=== PATIENT | male | born 1960 | race Two or more races ===

== ENCOUNTER 2020-01-07 10:29 | Emergency (ER) | payer SELFPAY ==
[2020-01-07] MEDS ORDERED: Sodium Chloride 0.9% 1,000 ML IV ONE (10:59)
--- NOTE | 2020-01-07 11:05 | EDM.PDOC ---
ED HPI GENERAL MEDICAL PROBLEM - General Chief Complaint: Respiratory Problem Stated Complaint: FEELING SICK Time Seen by Provider: 01/07/20 11:03 Source of Information: Reports: Patient History Limitations: Reports: No Limitations - History of Present Illness INITIAL COMMENTS - FREE TEXT/NARRATIVE: HISTORY AND PHYSICAL: History of present illness: Patient is a 59-year-old male who presents to the emergency room with complaints of "flulike symptoms". He states he has not felt well over the past 3 to 5 days and has not improved with rest/time. He states he has a dry nonproductive cough, occasional shortness of breath, fatigue and body aches. Patient denies any fever, chills, headache, change in vision, syncope or near syncope. Denies any chest pain, back pain, abdominal pain, nausea, vomiting, diarrhea, constipation or dysuria. Has not noted any blood in urine or stool. Patient has been eating and drinking appropriately. Translation Services was used: Iraqi Speaking Review of systems: As per history of present illness and below otherwise all systems reviewed and negative. Past medical history: As per history of present illness and as reviewed below otherwise noncontributory. Surgical history: As per history of present illness and as reviewed below otherwise noncontributory. Social history: See social history for further information Family history: As per history of present illness and as reviewed below otherwise noncontributory. Physical exam: General: Well developed and well nourished. Alert and orientated x 3. Nontoxic in appearance and in no acute distress. Vital signs are stable and have been reviewed by me. Nursing notes were reviewed. HEENT: Atraumatic, normocephalic, pupils equal and reactive bilaterally, negative for conjunctival pallor or scleral icterus, mucous membranes moist, TMs normal bilaterally, throat clear, neck supple, nontender, trachea midline. No drooling or trismus noted. No meningeal signs. No hot potato voice noted. Lungs: Clear to auscultation, breath sounds equal bilaterally, chest nontender. Normal work of breathing, no accessory muscles used. Heart: S1S2, regular rate and rhythm without overt murmur Abdomen: Soft, nondistended, nontender. Negative for masses or hepatosplenomegaly. Negative for costovertebral tenderness. Skin: Intact, warm, dry. No lesions or rashes noted. Hematologic: No petechiae or purpra. Mucosa appropriate color and normal nail bed color and refill. Extremities: Atraumatic, moves all extremities per self without difficulty or deficits, negative for cords or calf pain. Neurovascular unremarkable. Neuro: Awake, alert, oriented. Cranial nerves II through XII unremarkable. Cerebellum unremarkable. Motor and sensory unremarkable throughout. Exam nonfocal. Psychiatric: Mood and affect are appropriate. Normal thought process. Answering questions appropriately. Notes: Patient is vague with his symptoms and his dictation of what brings him to the ED today changes slightly when asked the same question. Initially he states he thinks he has the "flu" but since his symptoms are vague and changing during the interview, I will do a cardiac work up with basic labs as well to avoid missing anything. Lab work is unremarkable with the exception of positive COVID-19. His vital signs remained stable. I have talked with the patient about today's findings, in addition to providing specific details for plan of care. Reassessment at the time of disposition demonstrates that the patient is in no acute distress. The patient is stable for discharge, counseling was provided and we discussed in great detail signs and symptoms that would prompt them to return to the Emergency Department. Medication, follow up and supportive care measures were reviewed and discussed. Voices understanding and is agreeable to plan of care. Denies any further questions or concerns at this time. Diagnostics: CBC, CMP, Troponin, EKG, CXR, COVID Therapeutics: IV fluids Prescription: None Impression: COVID-19 Plan: 1. Your COVID-19 screening is positive. That means you do have the coronavirus and you are considered contagious. Your vital signs and oxygen saturation are w ell enough that you were able to monitor your symptoms at home. Continue to monitor for trouble breathing, new confusion or inability to arouse, bluish lips or face or any of the other symptoms we discussed -if this occurs please return to the emergency room. 2. Please self quarantine over the next 10 days. Inform any persons that you have been in contact with since you started becoming symptomatic that you have tested positive; they should be made aware and take the appropriate steps as needed. 3. You can take NyQuil during the evening to help get a restful night sleep. May alternate Tylenol and ibuprofen as needed for pain and fever management. 4. The [facility] department will be calling you and following up with you. The [place] COVID 19 Hotline phone number , They are open Thursday - Thursday 7am - 7pm. Follow up with your primary care provider for re-evaluation and re-testing after the 10 day quarantine and discuss when you should be seen. Definitive disposition and diagnosis as appropriate pending reevaluation and review of above. - Related Data Allergies Allergy/AdvReac Type Severity Reaction Status Date / Time No Known Allergies Allergy Verified 01/07/20 10:48 Home Meds: Home Meds . [No Known Home Meds] 01/07/20 [History] Past Medical History - Past Health History Medical/Surgical History: Denies Medical/Surgical History - Infectious Disease History Infectious Disease History: Reports: Chicken Pox, Measles Social & Family History - Family History Family Medical History: No Pertinent Family History - Tobacco Use Tobacco Use Status *Q: Never Tobacco User - Recreational Drug Use Recreational Drug Use: No ED ROS GENERAL - Review of Systems Review Of Systems: Comprehensive ROS is negative, except as noted in HPI. ED EXAM, GENERAL - Physical Exam Exam: See Below (See dictation) Course - Vital Signs Last Recorded V/S: Last Vital Signs Temp 96.2 F L 01/07/20 10:42 Pulse 75 01/07/20 10:42 Resp 18 01/07/20 10:42 BP 151/73 H 01/07/20 10:42 Pulse Ox 94 L 01/07/20 10:42 - Orders/Labs/Meds Orders: Active Orders 24 hr Category Date Time Status Chest 1V Frontal [CR] Stat Exams 01/07/20 10:59 Ordered CORONAVIRUS COVID-19 PCR PHL Stat Lab 01/07/20 11:27 Received Sodium Chloride 0.9% [Normal Saline] 1,000 ml Med 01/07/20 10:59 Active IV STAT Medication Orders Sodium Chloride (Normal Saline) 1,000 mls @ 999 mls/hr IV STAT ONE Stop: 01/07/20 11:59 Last Admin: 01/07/20 11:09 Dose: 999 mls/hr Documented by: DANIEL Labs: Laboratory Tests 01/07/20 01/07/20 01/07/20 Range/Units 11:10 11:10 11:27 WBC 6.24 (4.0-11.0) K/uL RBC 4.31 L (4.50-5.90) M/uL Hgb 13.3 (13.0-17.0) g/dL Hct 39.0 (38.0-50.0) % MCV 90.5 (80.0-98.0) fL MCH 30.9 (27.0-32.0) pg MCHC 34.1 (31.0-37.0) g/dL RDW Std Deviation 42.0 (28.0-62.0) fl RDW Coeff of Renita 13 (11.0-15.0) % Plt Count 179 (150-400) K/uL MPV 9.50 (7.40-12.00) fL Neut % (Auto) 62.5 (48.0-80.0) % Lymph % (Auto) 28.7 (16.0-40.0) % Ross % (Auto) 8.8 (0.0-15.0) % Eos % (Auto) 0.0 (0.0-7.0) % Baso % (Auto) 0.0 (0.0-1.5) % Neut # (Auto) 3.9 (1.4-5.7) K/uL Lymph # (Auto) 1.8 (0.6-2.4) K/uL Ross # (Auto) 0.6 (0.0-0.8) K/uL Eos # (Auto) 0.0 (0.0-0.7) K/uL Baso # (Auto) 0.0 (0.0-0.1) K/uL Nucleated RBC % 0.0 /100WBC Nucleated RBCs # 0 K/uL Sodium 137 (136-148) mmol/L Potassium 3.2 L (3.5-5.1) mmol/L Chloride 104 (98-107) mmol/L Carbon Dioxide 25.1 (21.0-32.0) mmol/L BUN 14 (7.0-18.0) mg/dL Creatinine 0.8 (0.8-1.3) mg/dL Est Cr Clr Drug Dosing 93.81 mL/min Estimated GFR (MDRD) > 60.0 ml/min Glucose 100 (74-106) mg/dL Calcium 8.2 L (8.5-10.1) mg/dL Total Bilirubin 0.3 (0.2-1.0) mg/dL AST 22 (15-37) IU/L ALT 23 (14-63) IU/L Alkaline Phosphatase 83 (46-116) U/L Troponin I 0.054 (0.000-0.056) ng/mL Total Protein 7.2 (6.4-8.2) g/dL Albumin 3.2 L (3.4-5.0) g/dL Globulin 4.0 (2.6-4.0) g/dL Albumin/Globulin Ratio 0.8 L (0.9-1.6) SARS CoV-2 RNA Rapid WILFRIDO POSITIVE H (NEGATIVE) Meds: Medications Generic Name Dose Route Start Last Admin Trade Name Freq PRN Reason Stop Dose Admin Sodium Chloride 1,000 mls @ 999 mls/hr 01/07/20 10:59 01/07/20 11:09 Normal Saline IV 01/07/20 11:59 999 mls/hr STAT ONE Administration Departure - Departure Time of Disposition: 11:46 Disposition: Home, Self-Care 01 Clinical Impression: COVID-19 - Discharge Information Instructions: COVID-19 Referrals: PCP,None [Primary Care Provider] - Forms: ED Department Discharge Additional Instructions: La siguiente informacin se proporciona a los pacientes atendidos en el departamento de emergencias que estn siendo dados de carina a verduzco hogar. Esta informacin es para describir rhonda opciones para la atencin de seguimiento. Proporcionamos a todos los pacientes atendidos en nuestro departamento de emergencias feliberto derivacin de seguimiento. La necesidad de seguimiento, as mikhail el momento y las circunstancias, varan segn los detalles de verduzco visita al departamento de emergencias. Si no tiene un mdico de atencin primaria en el personal, le proporcionaremos feliberto referencia. Siempre le recomendamos que se ponga en contacto con verduzco mdico personal despus de feliberto visita al servicio de urgencias para informarle de las circunstancias de la visita y para realizar un seguimiento con l y / o la necesidad de derivaciones a un especialista consultor. El departamento de emergencias tambin lo derivar a un especialista cuando sea apropiado. Esta remisin le asegura que tiene la oportunidad de recibir atencin de seguimiento con un especialista. Todas estas medidas se lorin en un esfuerzo por brindarle feliberto atencin ptima, que incluye verduzco seguimiento. En todas las circunstancias, siempre lo alentamos a que se comunique con verduzco mdico privado, quien sigue siendo un recurso para coordinar verduzco atencin. Cuando llame para recibir atencin de seguimiento, informe al consultorio que bettina seguimiento es de verduzco visita reciente a la sunitha de emergencias. Si por alguna razn se le niega el seguimiento, comunquese con el Departamento de Emergencias del [facility] al y solicite hablar con la enfermera a cargo del departamento de emergencias. [facility] [address] [place] [id number] [address] Harini por elegir el departamento de emergencias de [facility] en [place] para rhonda necesidades mdicas hoy. Fue un placer cuidar de ti flulike symptoms. 1. Verduzco deteccin de COVID-19 es positiva. Eso significa que tiene el coronavirus y se le considera contagioso. Rhonda signos vitales y la saturacin de oxgeno estn lo suficientemente haritha mikhail para poder controlar rhonda sntomas en casa. Contine monitoreando si tiene problemas para respirar, nueva confusin o incapacidad para despertarse, labios o zia azulados o cualquiera de los otros sntomas que discutimos; si esto ocurre, regrese a la sunitha de emergencias. 2. Por favor, pngase en cuarentena adore los prximos 10 dalton. Informe a todas las personas con las que cramer estado en contacto desde que comenz a tener sntomas de que cramer dado positivo en la prueba; deben ser conscientes y lisette las medidas adecuadas segn sea necesario. 3. Puede lisette NyQuil adore la noche para ayudarlo a tener un sueo reparador. Puede alternar Tylenol e ibuprofeno segn sea necesario para controlar el dolor y la fiebre. 4. El departamento de lydia del estado lo llamar y dorothy un seguimiento con usted. La lnea directa de [place] COVID 19, nmero de telfono , est abierta de lunes a viernes de 7 a. M. A 7 p. M. Reagan un seguimiento con verduzco proveedor de atencin primaria para feliberto reevaluacin y feliberto nueva prueba despus de la cuarentena de 10 dalton y discuta cundo debe ser atendido. 1. Your COVID-19 screening is positive. That means you do have the coronavirus and you are considered contagious. Your vital signs and oxygen saturation are well enough that you were able to monitor your symptoms at home. Continue to monitor for trouble breathing, new confusion or inability to arouse, bluish lips or face or any of the other symptoms we discussed -if this occurs please return to the emergency room. 2. Please self quarantine over the next 10 days. Inform any persons that you have been in contact with since you started becoming symptomatic that you have tested positive; they should be made aware and take the appropriate steps as needed. 3. You can take NyQuil during the evening to help get a restful night sleep. May alternate Tylenol and ibuprofen as needed for pain and fever management. 4. The [facility] department will be calling you and following up with you. The [place] COVID 19 Hotline phone number , They are open Thursday - Thursday 7am - 7pm. Follow up with your primary care provider for re-evaluation and re-testing after the 10 day quarantine and discuss when you should be seen. Sepsis Event Note (ED) - Evaluation Sepsis Screening Result: No Definite Risk - Focused Exam Vital Signs: Vital Signs Temp Pulse Resp BP Pulse Ox 01/07/20 10:42 96.2 F L 75 18 151/73 H 94 L - My Orders Last 24 Hours: My Active Orders 01/07/20 10:59 Chest 1V Frontal [CR] Stat Sodium Chloride 0.9% [Normal Saline] 1,000 ml IV STAT 01/07/20 11:27 CORONAVIRUS COVID-19 PCR PHL Stat - Assessment/Plan Last 24 Hours: My Active Orders 01/07/20 10:59 Chest 1V Frontal [CR] Stat Sodium Chloride 0.9% [Normal Saline] 1,000 ml IV STAT 01/07/20 11:27 CORONAVIRUS COVID-19 PCR PHL Stat
[2020-01-07 11:40] LABS: BLOOD UREA NITROGEN,BUN 14 mg/dL (7.0-18.0); CARBON DIOXIDE,CO2 25.1 mmol/L (21.0-32.0); CHLORIDE,CL 104 mmol/L (98-107); GLUCOSE RANDOM 100 mg/dL (74-106); POTASSIUM,K 3.2 mmol/L (3.5-5.1); SODIUM,NA 137 mmol/L (136-148)
--- NOTE | 2020-01-07 12:29 | CR ---
Indication: Shortness of breath. Technique: AP portable view of the chest. Comparison: None Findings: The heart is normal in size. The lungs are clear. No infiltrate, pleural effusion, or pneumothorax is identified. Impression: No acute cardiopulmonary process. Dictated by Bianca Ayers MD @ Jan 07 2020 12:26PM Signed by Dr. Bianca Ayers @ Jan 07 2020 12:27PM
== END 2020-01-07 12:10 | disposition home or self-care (01) ==
LOC: MW.ED 10:29
DX: U07.1 COVID-19 (principal)
CPT/HCPCS: 36415; 71045; 80053; 84484; 85025; 87635; 99285; J7030; 99282; U0002

== ENCOUNTER 2021-07-16 08:34 | Emergency (ER) | payer SELFPAY ==
[2021-07-16 09:35] LABS: BLOOD UREA NITROGEN,BUN 13 mg/dL (7.0-18.0); CARBON DIOXIDE,CO2 20.8 mmol/L (21.0-32.0); CHLORIDE,CL 104 mmol/L (98-107); GLUCOSE RANDOM 157 mg/dL (74-106); POTASSIUM,K 3.5 mmol/L (3.5-5.1); SODIUM,NA 138 mmol/L (136-148)
== END 2021-07-16 10:37 | disposition home or self-care (01) ==
LOC: EDBD 08:34 → MW.ED 08:34
DX: R33.9 Retention of urine, unspecified (principal); Z79.899 Other long term (current) drug therapy
CPT/HCPCS: 36415; 51702; 74176; 74176-26; 80053; 81001; 85025; 99282; 99284-25

== ENCOUNTER 2021-07-17 17:03 | Emergency (ER) | payer SELFPAY | END 2021-07-17 18:10 | disposition home or self-care (01) | LOC: MW.ED 17:03 | DX: T83.038A Leakage of other urinary catheter, initial encounter (principal); Z79.899 Other long term (current) drug therapy | CPT/HCPCS: 51702; 99282; 99283-25 ==

== ENCOUNTER 2021-07-22 10:12 | Emergency (ER) | payer SELFPAY | END 2021-07-22 12:40 | disposition home or self-care (01) | LOC: MW.ED 10:12 | DX: T83.098A Other mechanical complication of other urinary catheter, initial encounter (principal); Z46.6 Encounter for fitting and adjustment of urinary device; Z79.899 Other long term (current) drug therapy | CPT/HCPCS: 99283 ==

== ENCOUNTER 2022-10-05 09:44 | Emergency (ER) | payer SELFPAY ==
[2022-10-05] MEDS ORDERED: Tamsulosin 0.4 MG Cap.ER PO STA (10:11)
[2022-10-05 10:35] LABS: APPEARANCE,URINE CLEAR; BILIRUBIN,URINE NEGATIVE (NEGATIVE); COLOR,URINE YELLOW; GLUCOSE,URINE NEGATIVE (NEGATIVE); KETONES,URINE NEGATIVE (NEGATIVE); LEUKOCYTE ESTERASE,URINE NEGATIVE (NEGATIVE); NITRITE,URINE NEGATIVE (NEGATIVE); OCCULT BLOOD,URINE SMALL (NEGATIVE); PH,URINE 6.5 (5.0-8.0); PROTEIN,URINE NEGATIVE (NEGATIVE); UROBILINOGEN,URINE 0.2 EU/dL (<2.0)
[2022-10-05 10:54] LABS: EPITHELIAL CELLS,URINE RARE (NONE-FEW); WBC,URINE 0-1 (0-5/HPF)
[2022-10-05 10:55] LABS: BACTERIA,URINE NOT SEEN (NEGATIVE)
[2022-10-05 11:26] LABS: ALBUMIN 3.6 g/dL (3.4-5.0); BILIRUBIN TOTAL 0.4 mg/dL (0.2-1.0); CALCIUM 8.7 mg/dL (8.5-10.1); CREATININE 0.7 mg/dL (0.8-1.3); EST CRCL DRUG DOSING (CG) 89.08 mL/min; POTASSIUM,K 3.5 mmol/L (3.5-5.1); PROTEIN TOTAL,TP 7.2 g/dL (6.4-8.2)
== END 2022-10-05 11:54 | disposition home or self-care (01) ==
LOC: MW.ED 09:44
DX: R33.9 Retention of urine, unspecified (principal)
CPT/HCPCS: 36415; 51702; 80053; 81001; 99284; A9270; 99283

== ENCOUNTER 2022-10-12 12:21 | Emergency (ER) | payer SELFPAY | END 2022-10-12 14:28 | disposition home or self-care (01) | LOC: MW.ED 12:21 | DX: Z46.6 Encounter for fitting and adjustment of urinary device (principal) | CPT/HCPCS: 99283 ==

== ENCOUNTER 2022-12-17 09:21 | Emergency (ER) | payer SELFPAY ==
[2022-12-17] MEDS ORDERED: Sodium Chloride 0.9% 10 ML Syringe FLUSH PRN (09:34)
[2022-12-17] MEDS ORDERED: Sodium Chloride 0.9% 2.5 ML Syringe FLUSH PRN (09:34)
[2022-12-17 09:59] LABS: BASOPHILS ABSOLUTE AUTO 0.04 K/uL (0.00-0.20); BASOPHILS PERCENT AUTO 0.4 % (0.0-1.0); HEMATOCRIT 43.4 % (42.0-52.0); HEMOGLOBIN 15.4 g/dL (14.0-18.0); IMMATURE GRAN ABSOLUTE AUTO 0.03 K/uL (0.00-0.05); IMMATURE GRAN PERCENT AUTO 0.3 % (0.0-0.4); LYMPHOCYTES ABSOLUTE AUTO 1.27 K/uL (1.00-4.80); LYMPHOCYTES PERCENT AUTO 12.3 % (24.0-44.0); MEAN CORPUSCULAR HEMOGLOBIN 31.3 pg (28.0-32.0); MEAN CORPUSCULAR HGB CONC 35.5 g/dL (32.0-36.0); MEAN CORPUSCULAR VOLUME 88.2 fL (83.0-99.0); MEAN PLATELET VOLUME 9.9 fL (9.4-12.4); MONOCYTES ABSOLUTE AUTO 0.32 K/uL (0.00-0.80); MONOCYTES PERCENT AUTO 3.1 % (0.0-8.0); NEUTROPHILS PERCENT AUTO 83.9 % (41.0-71.0); PLATELET COUNT,PLT 256 K/uL (150-400); RED BLOOD CELL COUNT 4.92 M/uL (4.52-5.90); WHITE BLOOD CELL COUNT,WBC 10.36 K/uL (3.9-11.3)
[2022-12-17 10:15] LABS: A/G RATIO 1.1 (0.9-1.6); ALBUMIN 4.1 g/dL (3.4-5.0); BILIRUBIN TOTAL 0.3 mg/dL (0.2-1.0); CALCIUM 9.3 mg/dL (8.5-10.1); CARBON DIOXIDE,CO2 24.3 mmol/L (21.0-32.0); CREATININE 0.8 mg/dL (0.8-1.3); EST CRCL DRUG DOSING (CG) 80.86 mL/min; POTASSIUM,K 3.8 mmol/L (3.5-5.1)
[2022-12-17 10:29] LABS: APPEARANCE,URINE CLEAR; BILIRUBIN,URINE NEGATIVE (NEGATIVE); COLOR,URINE YELLOW; GLUCOSE,URINE NEGATIVE (NEGATIVE); KETONES,URINE NEGATIVE (NEGATIVE); LEUKOCYTE ESTERASE,URINE NEGATIVE (NEGATIVE); NITRITE,URINE NEGATIVE (NEGATIVE); OCCULT BLOOD,URINE SMALL (NEGATIVE); PROTEIN,URINE NEGATIVE (NEGATIVE); UROBILINOGEN,URINE 0.2 EU/dL (<2.0)
[2022-12-17 10:50] LABS: BACTERIA,URINE RARE (NEGATIVE); EPITHELIAL CELLS,URINE RARE (NONE-FEW); WBC,URINE 0-2 (0-5/HPF)
== END 2022-12-17 12:41 | disposition home or self-care (01) ==
LOC: MW.ED 09:21 → MERGE 09:21 → MW.ED 12:41
DX: R33.9 Retention of urine, unspecified (principal); R73.9 Hyperglycemia, unspecified
CPT/HCPCS: 36415; 51702; 80053; 81001; 83690; 85025; 99284; J3490; 99283

== ENCOUNTER 2022-12-24 10:47 | Emergency (ER) | payer SELFPAY | END 2022-12-24 13:33 | disposition home or self-care (01) | LOC: MW.ED 10:47 | DX: Z46.6 Encounter for fitting and adjustment of urinary device (principal) | CPT/HCPCS: 51798; 99283 ==